=== PATIENT | male | born 1995 | race Caucasian/White ===

== ENCOUNTER 2021-09-09 03:03 | Emergency (ER) | payer OTHER ==
[~2021-09-09] VITALS: Ht 180.3 cm; Wt 117.9 kg
[2021-09-09] MEDS ORDERED: HYDROCODON-ACE1 EAC8 PO (04:38)
[2021-09-09 05:05] VITALS: BP 150/91
== END 2021-09-09 05:05 | disposition home or self-care (01) ==
LOC: M.ERS 03:03
DX: S82.141A Displaced bicondylar fracture of right tibia, initial encounter for closed fracture (principal); W19.XXXA Unspecified fall, initial encounter; Y93.89 Activity, other specified; Y92.89 Other specified places as the place of occurrence of the external cause; Y99.8 Other external cause status